=== PATIENT | female | born 1995 | race Caucasian/White ===

== ENCOUNTER 2017-07-27 07:51 | Inpatient (IN) | payer OTHER ==
[2017-07-27] MEDS ORDERED: ceFAZolin 2 GM PREMIX (*) 2 GM/50 ML BAG IVPB ONE (11:31)
[2017-07-27 12:02] LABS: ABS Basophils 0.1 10^3/ul (0-0.2); ABS Eosinophils 0 10^3/ul (0-0.6); ABS Lymphocytes 1.9 10^3/ul (1.0-4.8); ABS Monocytes 0.7 10^3/ul (0-0.8); ABS Neutrophils 14.9 10^3/ul (1.5-7.7); ABS Nucleated RBC 0 10^3/ul; Eosinophil % 0.1 % (0-6); Hematocrit 41 % (35-47); Hemoglobin 14.1 g/dl (12.0-16.0); Lymphocyte % 10.8 % (25-47); Mean Corpuscular HGB Conc 35 g/dl (31-36); Mean Corpuscular Hemoglobin 32 pg (27-31); Mean Corpuscular Volume 92 fL (80-97); Mean Platelet Volume 10 um3 (7.4-10.4); Nucleated Red Blood Cells % 0; Platelet Count 211 10^3/ul (150-450); Red Blood Count 4.42 10^6/ul (4.0-5.4); Red Cell Distribution Width 13 % (10.5-15); White Blood Count 17.6 10^3/ul (3.5-10.8)
[2017-07-27] MEDS ORDERED: Promethazine INJ(RESTRICTED)* 25 MG/ML 1 ML VIAL IV ONE (14:55)
[2017-07-27] MEDS ORDERED: Nalbuphine* 20 MG/ML 1 ML VIAL IV ONE (14:55)
[2017-07-27] MEDS ORDERED: OBEPIDURAL* 250 ML EPIDURAL ONE (20:40)
[2017-07-27] MEDS ORDERED: ceFAZolin 1 GM VIAL(*) 1 GM in NS 0.9% 50 ML* 50 ML IVPB SCH (21:00)
[2017-07-27] MEDS ORDERED: Famotidine TAB* 20 MG PO PRN (22:04)
[2017-07-27] MEDS ORDERED: Sodium Citrate/Citric Acid* 15 ML UDC PO PRN (22:04)
[2017-07-27] MEDS ORDERED: Phenylephrine IV* 40 MCG/ML 10 ML SYRINGE IV PUSH PRN (22:04)
[2017-07-27] MEDS ORDERED: Oxytocin in LR* 0 UNITS/0 ML BAG IVPB ONE (23:55)
[2017-07-28] MEDS ORDERED: Acetaminophen TAB* 325 MG PO PRN (01:54)
[2017-07-28] MEDS ORDERED: Glycerin ADULT SUPP PR PRN (01:54)
[2017-07-28] MEDS: OBEPIDURAL* 250 ML EPIDURAL SCH (02:43)
[2017-07-28] MEDS ORDERED: Ammonia Inhalant* 1 EA AMP ONE (03:21)
[2017-07-28] MEDS: Dibucaine 1% 28.35 GM TUBE PR PRN (04:14)
[2017-07-28] MEDS: Witch Hazel PAD* JAR TOPICAL PRN (04:14)
[2017-07-28] MEDS: Ibuprofen TAB* 600 MG PO PRN ×3 (05:47→18:28)
[2017-07-28] MEDS ORDERED: Simethicone TAB* 80 MG TAB.CHEW PO SCH (08:30)
[2017-07-28] MEDS: Docusate CAP* 100 MG PO SCH ×3 (12:20→20:32)
[2017-07-29] MEDS: Ibuprofen TAB* 600 MG PO PRN ×3 (03:13→20:25)
[2017-07-29 06:35] LABS: ABS Basophils 0.2 10^3/ul (0-0.2); ABS Eosinophils 0.2 10^3/ul (0-0.6); ABS Lymphocytes 3.7 10^3/ul (1.0-4.8); ABS Monocytes 0.9 10^3/ul (0-0.8); ABS Neutrophils 11.2 10^3/ul (1.5-7.7); ABS Nucleated RBC 0 10^3/ul; Hematocrit 36 % (35-47); Hemoglobin 12.2 g/dl (12.0-16.0); Lymphocyte % 22.7 % (25-47); Mean Corpuscular HGB Conc 34 g/dl (31-36); Mean Corpuscular Hemoglobin 32 pg (27-31); Mean Corpuscular Volume 94 fL (80-97); Mean Platelet Volume 9 um3 (7.4-10.4); Nucleated Red Blood Cells % 0.1; Platelet Count 164 10^3/ul (150-450); Red Blood Count 3.82 10^6/ul (4.0-5.4); Red Cell Distribution Width 13 % (10.5-15); White Blood Count 16.1 10^3/ul (3.5-10.8)
[2017-07-29] MEDS: OBEPIDURAL* 250 ML EPIDURAL SCH (07:30)
[2017-07-29] MEDS: Docusate CAP* 100 MG PO SCH ×3 (08:39→20:25)
[2017-07-29] MEDS: Ferrous Gluconate TAB* 324 MG TAB PO SCH ×2 (09:25→22:23)
[2017-07-29] MEDS: Witch Hazel PAD* JAR TOPICAL PRN (13:42)
[2017-07-29] MEDS: Dibucaine 1% 28.35 GM TUBE PR PRN (13:42)
--- NOTE | 2017-07-29 21:30 | PTEDU ---
Patient Name: CANDE CORRIGAN CANDE CORRIGAN selected video: Follow Me Mum: [facility] Successful to view on 07/29 at 9:29:36 PM [id number]
[2017-07-30] MEDS: Ibuprofen TAB* 600 MG PO PRN (03:50)
[2017-07-30] MEDS: Docusate CAP* 100 MG PO SCH (08:18)
[2017-07-30 11:08] VITALS: BP 118/95
== END 2017-07-30 12:52 | disposition home or self-care (01) | DRG 560 ==
LOC: MCHOBOUT 07:51 → MCHOB 11:30
PROVIDERS: ADMIT Midwife; ATTEND Midwife
PROC: 10907ZC Drainage of Amniotic Fluid, Therapeutic from Products of Conception, Via Natural or Artificial Opening (ICD-10-PCS; principal; 2017-07-27)
PROC: 4A1HXCZ Monitoring of Products of Conception, Cardiac Rate, External Approach (ICD-10-PCS; 2017-07-27)
PROC: 0HQ9XZZ Repair Perineum Skin, External Approach (ICD-10-PCS; 2017-07-28)
PROC: 10E0XZZ Delivery of Products of Conception, External Approach (ICD-10-PCS; 2017-07-28)
PROC: 0UQMXZZ Repair Vulva, External Approach (ICD-10-PCS; 2017-07-28)
DX: O75.89 Other specified complications of labor and delivery (principal); K64.9 Unspecified hemorrhoids; O70.0 First degree perineal laceration during delivery; O92.29 Other disorders of breast associated with pregnancy and the puerperium; O99.824 Streptococcus B carrier state complicating childbirth; Z3A.39 39 weeks gestation of pregnancy; Z37.0 Single live birth; Z88.0 Allergy status to penicillin
CPT/HCPCS: 36415; 85025; 86850; 86900; 86901; A9270-GY; J0690; J2300; J2550

== ENCOUNTER 2019-02-09 12:01 | Inpatient (IN) | payer BC, OTHER ==
[2019-02-09] MEDS ORDERED: Misoprostol TAB* 100 MCG VAGINAL ONE (14:06)
[2019-02-09] MEDS ORDERED: Misoprostol TAB* 100 MCG PO ONE (14:14)
--- NOTE | 2019-02-09 14:14 | PN ---
L&D Outpatient: Visit - Reproductive Information Estimated Due Date: 02/12/19 Gestational Age: 39 Weeks and 4 Days : 2 Para: 1 - Reason for Visit Visit Reason: cervical ripening - Antepartal Records Antepartal Record: Reviewed, Uncomplicated - Patient History Patient History Significant: No Review of Systems Constitutional: Comfortable CV Complaint: No Respiratory: Shortness of Breath: No Gastrointestinal: No Nausea/Vomiting, Normal Bowel Movement Genitourinary: No Dysuria, No Bleeding, No Leaking Fluid Musculoskeletal: No Complaint, No Epigastric Pain Neurological: No Headache, No Visual Changes Movement: Normal L&D Outpatient: Exam Vitals - Most Recent: T:98.1, P:105, R:18, BP: 134/80, O2:99% - Cervical Exam Cervical Exam: /-2 - Abdominal Exam Abdomen Exam: Fundal Height Consistent with Dates - Membranes Membrane Status: Intact - Ultrasound/Biophysical Profile Ultrasound Status: Not Done EFM Findings - External Monitor Findings Baseline Heart Rate: 140 External Monitor Findings: Accelerations Present, No Pattern of Variable or Late Decelerations, Variability Moderate, Baseline Stable Contractions: None L&D Outpatient: Asses/Plan Assessment: 23 y.o. , cervical ripening - Discharge Diagnosis Discharge Diagnosis: Supervision-Normal Preg Plan: Other - cervical ripening, reevaluate in 4 hrs
[2019-02-09 16:49] LABS: Urine Benzodiazepine Screen None Detected (None Detect); Urine Opiates Screen None Detected (None Detect)
[2019-02-09] MEDS ORDERED: Lactated Ringers 1000 ML Bag* 1,000 ML IV ONE (18:47)
[2019-02-09] MEDS ORDERED: Buffered Lidocaine 1% SYRIN* 1 ML/SYRINGE INTRADERM ONE (18:47)
--- NOTE | 2019-02-09 18:56 | HP ---
General Information - Reason for Visit induction of labor - General Information Maternal Age: 23 Grav: 1 Para: 1 SAB: 0 IEA: 0 Estimated Due Date: 02/12/19 Determined By: LMP Gestational Age in Weeks/Days: 39.4 Maternal Blood Type and Rh: O Positive - Results this Serology/RPR Result: Non-Reactive Rubella Result: Immune HBsAg Result: Negative HIV Result: Negative GBS Culture Result: Negative Past Medical History Delivery History: Hx Uncomplicated Vaginal Delivery Pertinent Past Medical History: Non-Contributory Pertinent Past Surgical History: See Records - tonsilectomy 2009, wisdom teeth 2009 Pertinent Family History: See Records - S: breast CA; PGM: osteoporosis; MGM: colon CA - Antepartal Records Antepartal Records: Reviewed, Uncomplicated Review of Systems Constitutional: Uncomfortable CV Complaint: No Respiratory: Shortness of Breath: No Gastrointestinal: No Nausea/Vomiting, Normal Bowel Movement Genitourinary: Leaking Fluid, No Dysuria, No Bleeding Musculoskeletal: No Epigastric Pain, Contractions Neurological: No Headache, No Visual Changes Movement: Normal Exam Allergies/Adverse Reactions: Allergies MS Penicillins [Penicillins] Allergy (Unknown, Verified 02/09/19 12:52) Unknown Reaction Details T:98.1, p: 105, R:18, BP: 134/80, O2:99% Lab Values - Entire Visit: Laboratory Tests 02/09/19 12:20 Urine Opiates Screen None detected Ur Barbiturates Screen None detected Ur Phencyclidine Scrn None detected Ur Amphetamines Screen Presumptive positive A U Benzodiazepines Scrn None detected Urine Cocaine Screen None detected U Cannabinoids Screen None detected - Measurements Height: 5 ft 2 in Weight: 160 lb Weight in lbs: [phone] Body Mass Index (BMI): 29.2 Pre- Weight: 112 lb Weight Gained This : 48 lbs and 0 ozs - Exam Breast: Breast Exam Deferred CVA: No CVA Tenderness Extremities: No Edema Heart: Normal Rhythm/Heart Sounds HEENT: No Significant Findings Lungs: Clear Bilaterally Rectal: Rectal Exam Deferred Reflexes: DTR 2+ Thyroid: No Thyromegaly - Abdominal Exam Abdomen Exam: Fundal Height Consistent with Dates - Ultrasound/Biophysical Profile Ultrasound Status: Not Done Targeted Exam Findings Estimated Weight: 7lbs 4oz Cervical Exam: 6cm Effacement: 90% Station: -1 Presenting Part: Vertex Membrane Status: AROM Amniotic Fluid Evaluation: Clear Bleeding/Discharge: Bloody Show EFM Findings - External Monitor Findings Baseline Heart Rate: 135 External Monitor Findings: Accelerations Present, No Pattern of Variable or Late Decelerations, Variability Moderate, Baseline Stable Contractions: Regular, Moderate, 45-90 Seconds Contraction Frequency: 1-2 Assessment/Plan - Assessment 23 y.o. , 39wks 4days EGA, active labor, Cat I NST - Plan Plan: Admit - Anticipate Vaginal Delivery - Date/Time of Admission Date of Admission: 02/09/19 Time of Admission: 18:22
[2019-02-09] MEDS ORDERED: Lactated Ringers 1000 ML Bag* 1,000 ML IV SCH ×2 (19:00→23:00)
[2019-02-09] MEDS ORDERED: Lidocaine 2% VISCOUS* 15 ML UDC ONE (20:40)
[2019-02-09] MEDS ORDERED: Glycerin ADULT SUPP PR PRN (22:27)
--- NOTE | 2019-02-09 22:31 | PROCNOTE ---
[facility] OB: Delivery Note - Delivery A Date of : 02/09/19 Time of : 21:47 Sex: Male Score 1 Minute: 9 Score 5 Minutes: 9 Gestational Age in Weeks and Days at Delivery: 39 Weeks and 4 Days Delivery Method: Spontaneous Vaginal Labor: Induced Did Patient attempt ?: N/A, No Previous Estimated Blood Loss: 200 Anesthesia/Analgesia: Nitrous-Labor Delivered By: Sasha Sosa - Nursery Level of Nursery: Regular/Bedside - Perineum Perineal Injury: Perineal Laceration, 1st Degree Perineal Repair: By Delivering Practioner - Events Delivery Events of Note: Shoulder Dystocia Delivery Events of Note Comment: 50 second mild shoulder dystocia resolved with Kody
[2019-02-09] MEDS ORDERED: Ibuprofen TAB* 600 MG ONE (22:40)
[2019-02-09] MEDS ORDERED: Dibucaine 1% 28.35 GM TUBE ONE (22:41)
[2019-02-09] MEDS ORDERED: Witch Hazel PAD* JAR ONE (22:42)
[2019-02-09] MEDS: Witch Hazel PAD* JAR TOPICAL PRN (22:44)
[2019-02-09] MEDS: Ibuprofen TAB* 600 MG PO PRN (22:44)
[2019-02-09] MEDS: Dibucaine 1% 28.35 GM TUBE PR PRN (22:45)
[2019-02-10] MEDS ORDERED: Lidocaine 1% INJ* 10 MG/ML 30 ML SDV ONE (00:19)
[2019-02-10] MEDS: Acetaminophen TAB* 325 MG PO PRN ×5 (00:56→21:16)
[2019-02-10] MEDS: Ibuprofen TAB* 600 MG PO PRN ×4 (04:13→23:10)
[2019-02-10] MEDS ORDERED: Simethicone TAB* 80 MG TAB.CHEW PO SCH (08:30)
[2019-02-10] MEDS ORDERED: Ferrous Gluconate TAB* 324 MG TAB PO SCH (09:00)
[2019-02-10 09:02] LABS: ABS Basophils 0.1 10^3/ul (0-0.2); ABS Lymphocytes 2.2 10^3/ul (1.0-4.8); ABS Monocytes 0.7 10^3/ul (0-0.8); ABS Neutrophils 13.9 10^3/ul (1.5-7.7); Eosinophil % 0.1 %; Hematocrit 34 % (35-47); Hemoglobin 11.6 g/dL (12.0-16.0); Lymphocyte % 12.8 %; Mean Corpuscular HGB Conc 34 g/dL (31-36); Mean Corpuscular Hemoglobin 31 pg (27-31); Mean Corpuscular Volume 90 fL (80-97); Mean Platelet Volume 9.8 fL (7.4-10.4); Platelet Count 167 10^3/uL (150-450); Red Cell Distribution Width 13 % (10-15)
[2019-02-10] MEDS: Docusate CAP* 100 MG PO SCH ×3 (09:09→21:16)
[2019-02-10] MEDS: Witch Hazel PAD* JAR TOPICAL PRN (10:53)
[2019-02-10] MEDS: Dibucaine 1% 28.35 GM TUBE PR PRN (10:54)
[2019-02-11] MEDS: Ibuprofen TAB* 600 MG PO PRN (06:16)
[2019-02-11 08:56] VITALS: BP 131/96
[2019-02-11] MEDS: Docusate CAP* 100 MG PO SCH (09:30)
[2019-02-11] MEDS: Witch Hazel PAD* JAR TOPICAL PRN (10:03)
[2019-02-11] MEDS: Dibucaine 1% 28.35 GM TUBE PR PRN (10:03)
== END 2019-02-11 10:30 | disposition home or self-care (01) | DRG 560 ==
LOC: MCHOBOUT 12:01 → MCHOB 18:57
PROVIDERS: ADMIT Midwife; ATTEND Midwife
PROC: 10E0XZZ Delivery of Products of Conception, External Approach (ICD-10-PCS; principal; 2019-02-09)
PROC: 10907ZC Drainage of Amniotic Fluid, Therapeutic from Products of Conception, Via Natural or Artificial Opening (ICD-10-PCS; 2019-02-09)
PROC: 0HQ9XZZ Repair Perineum Skin, External Approach (ICD-10-PCS; 2019-02-09)
PROC: 3E0P7VZ Introduction of Hormone into Female Reproductive, Via Natural or Artificial Opening (ICD-10-PCS; 2019-02-09)
PROC: 4A1HXCZ Monitoring of Products of Conception, Cardiac Rate, External Approach (ICD-10-PCS; 2019-02-09)
DX: O66.0 Obstructed labor due to shoulder dystocia (principal); Z37.0 Single live birth; R03.0 Elevated blood-pressure reading, without diagnosis of hypertension; O99.89 Other specified diseases and conditions complicating pregnancy, childbirth and the puerperium; O70.0 First degree perineal laceration during delivery; N64.89 Other specified disorders of breast; Z88.0 Allergy status to penicillin; Z3A.39 39 weeks gestation of pregnancy
CPT/HCPCS: 36415; 80307; 85025; A9270-GY; S0191